=== PATIENT | female | born 1970 | race Caucasian/White ===

== ENCOUNTER 2020-08-16 02:08 | Emergency (ER) | payer MEDICAID ==
[~2020-08-16] VITALS: Ht 170.2 cm; Wt 63.5 kg
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
[2020-08-16] MEDS ORDERED: HYDR-3972 PO (03:54)
[2020-08-16] MEDS ORDERED: ONDANSETRON HCL/PF 4 MG/2 ML VIAL ONE (03:56)
[2020-08-16] MEDS ORDERED: MORPHINE SULFATE INJ 2 MG/ML DISP.SYRIN ONE (03:56)
[2020-08-16] MEDS ORDERED: MORPHINE SULFATE INJ 2 MG/ML DISP.SYRIN IV ONE (04:00)
[2020-08-16] MEDS: MORPHINE SULFATE INJ 2 MG/ML DISP.SYRIN IV ONE (04:03)
[2020-08-16] MEDS: ONDANSETRON HCL/PF 4 MG/2 ML VIAL IV ONE (04:03)
--- NOTE | 2020-08-16 04:15 | NUR ---
HIGHWAY PATROL AT BEDSIDE
[2020-08-16 04:29] VITALS: BP 128/71
--- NOTE | 2020-08-16 04:45 | NUR ---
Patient discharged to home in stable condition. Written and verbal after care instructions given. Patient verbalizes understanding of instruction. Crutches dispensed. Pt instructed on proper use of crutches. Patient able to demonstrate correct use of crutches.
== END 2020-08-16 04:46 | disposition home or self-care (01) ==
LOC: ER 02:13
DX: S82.392A Other fracture of lower end of left tibia, initial encounter for closed fracture (principal); S20.219A Contusion of unspecified front wall of thorax, initial encounter; V49.49XA Driver injured in collision with other motor vehicles in traffic accident, initial encounter; Y93.89 Activity, other specified; Y92.413 State road as the place of occurrence of the external cause; Y99.8 Other external cause status
CPT/HCPCS: 29505; 71045; 73590; 73610; 96374; 96375; 99284; J2270; J2405